=== PATIENT | female | born 1980 | race Caucasian/White ===

== ENCOUNTER 2023-10-25 09:43 | Emergency (ER) | payer OTHER ==
[~2023-10-25] VITALS: Ht 154.9 cm; Wt 96.2 kg
[2023-10-25 10:00] VITALS: BP 106/61; PULSE 91; RESP 16; TEMP 98.4; O2SAT 98
[2023-10-25] MEDS ORDERED: ONDA8TAB87 PO (11:04)
[2023-10-25] MEDS ORDERED: IBUP-2213 PO (11:04)
[2023-10-25] MEDS: KETOROLAC 60 MG/2 ML VIAL IM ONE (11:10)
[2023-10-25 11:20] VITALS: BP 106/61; PULSE 91; RESP 16; TEMP 98.4; O2SAT 98
== END 2023-10-25 11:20 | disposition home or self-care (01) ==
LOC: MED 09:43
DX: R10.32 Left lower quadrant pain (principal); R11.2 Nausea with vomiting, unspecified; R68.83 Chills (without fever); Z90.49 Acquired absence of other specified parts of digestive tract; Z86.39 Personal history of other endocrine, nutritional and metabolic disease
CPT/HCPCS: 81002; 81025; 96372; 99283; J1885